=== PATIENT | female | born 1985 | race Caucasian/White ===

== ENCOUNTER 2018-05-04 16:15 | Emergency (ER) | payer OTHER, SELFPAY ==
[2018-05-04 16:22] VITALS: BP 133/89; PULSE 110; RESP 15; TEMP 37; O2SAT 100; BMI 25.3
[2018-05-04 19:00] VITALS: BP 117/70; PULSE 95; O2SAT 97
--- NOTE | 2018-05-04 19:26 | PC.NURSE ---
Pt had d/c at the end of February. For the last 48 hours pt has had cramping pain in pelvic area. Pt denies any bleeding. Pt appears to be in a lot of discomfort. Pt has attempted to use flexeril,zofran,toradol for relief but it is now not helping her.
--- NOTE | 2018-05-04 19:38 | ED_ITS ---
HPI - Female Genitourinary General Chief complaint: OB/Uterine Contractions Stated complaint: states miscarriage, cramping Time Seen by Provider: 05/04/18 17:33 Source: patient Mode of arrival: ambulatory Limitations: no limitations History of Present Illness HPI Narrative: This is a 32-year-old female comes to the emergency department with complaint of pelvic cramping and discomfort. Patient had a miscarriage in February along with a D&C. This was on April 12. She started having pelvic cramping in the last 4 days. She has tried ibuprofen and Tylenol followed by Flexeril and oral Toradol. Patient still continues to have quite a bit of pelvic cramping. She has not had any vaginal bleeding since her D and C. She has not had any fevers, she has been nauseated and had some vomiting. She has not been having any black or bloody stools she did have 1 or 2 episodes of diarrhea yesterday. She has not had any sexual activity since her D and C. She is not on any contraceptives or estrogen/progesterone. She did have severe periods in the past and when she had Mirena had a lot of discomfort as well. She has not had any other abdominal surgeries. She does have a history significant for L5 compression fracture as well as knee surgery. Along with wisdom teeth and tonsils. Related Data Previous Rx's Medication Instructions Recorded hydrocodone-acetaminophen [Dearborn] 1 tab PO QID PRN #7 tab 05/04/18 Allergies Allergy/AdvReac Type Severity Reaction Status Date / Time Penicillins Allergy Verified 05/04/18 16:22 Review of Systems Review of Systems All systems reviewed & are unremarkable except as noted in HPI and below Constitutional Denies fever(s) Gastrointestinal Gastrointestinal: Reports abdominal pain, Denies melena, Denies hematochezia, Denies constipation, Reports cramping, Reports diarrhea (x 1-2), Reports nausea and Reports vomiting Genitourinary Denies hematuria, Denies flank pain, Denies urinary incontinence and Denies urinary urgency Musculoskeletal Reports back pain (cramping) PFSH Medical History L5 vertebral fracture (Acute) Social History Smoking Status: Never smoker Exam Narrative Exam Narrative: GENERAL: Alert and oriented x three, well-nourished, well- appearing female in moderate distress. Patient does appear comfortable in the room. HEENT: Head normocephalic, atraumatic, EOMI, pupils reactive, face symmetric, moist mucous membranes NECK: Supple, full range of motion CARDIOVASCULAR: Regular rate and rhythm without murmurs, rubs or gallops. RESPIRATORY: Breath sounds equal bilaterally, no wheezes rales or rhonchi. ABDOMEN: Soft, mild suprapubic tenderness. Normoactive bowel sounds all 4 quadrants. No guarding or rebound, rigidity, no mass : No CVA tenderness EXTREMITIES: Normal range of motion NEUROLOGICAL: Cranial nerves II through XII grossly intact. Moving all extremities SKIN: Warm, dry, no petechiae, no rashes or lesions. Initial Vital Signs Initial Vital Signs: Vital Signs Temperature 98.6 F 05/04/18 16:22 Pulse Rate 110 H 05/04/18 16:22 Respiratory Rate 15 05/04/18 16:22 Blood Pressure 133/89 05/04/18 16:22 Pulse Oximetry 100 05/04/18 16:22 Course Orders Ordered: ED Orders 05/04/18 20:20 Complete Blood Count AUTO DIFF Stat Comprehensive Metabolic Panel Stat 05/04/18 21:51 CT abdomen pelvis w con Stat Discontinued Medications Hydrocodone Bitart/Acetaminophen (Vicodin Prepack) 1 bottle MISC SEEINSTR ONE Stop: 05/04/18 23:16 Last Admin: 05/04/18 23:39 Dose: 1 bottle Hydromorphone HCl (Dilaudid) 1 mg IV NOW ONE Stop: 05/04/18 21:39 Last Admin: 05/04/18 21:39 Dose: 1 mg Hydromorphone HCl (Dilaudid) 1 mg IV NOW ONE Stop: 05/04/18 23:16 Last Admin: 05/04/18 23:39 Dose: 1 mg Sodium Chloride (Normal Saline 0.9%) 1,000 mls @ 1,000 mls/hr IV BOLUS ONE Stop: 05/04/18 20:36 Last Infusion: 05/04/18 22:19 Dose: 0 mls/hr Admin: 05/04/18 20:50 Dose: 1,000 mls/hr Morphine Sulfate (Morphine) 4 mg IV NOW ONE Stop: 05/04/18 19:38 Last Admin: 05/04/18 20:50 Dose: 4 mg Ondansetron HCl (Zofran) 4 mg IV NOW ONE Stop: 05/04/18 19:38 Last Admin: 05/04/18 20:50 Dose: 4 mg Reevaluation(s) Reevaluation #1: Recheck after pain and anti-nausea medications. Pain improving with second dose of IV pain meds. US negative. labs no acute changes other than BUN up. ketones in urine. Discussed did not find any acute changes on her ultrasound she is quite tender we discussed watchful waiting versus imaging and she elected to get CT scan. Time: 21:42 Reevaluation #2: pain starting to return but better. REviewed imaging and labs. Patient's ultrasound and CT do not show any acute changes. Urine does not show any infection. Patient has slight white count of 12. She is much more comfortable at this time. Plan for follow-up for symptoms. Time: 23:19 Vital Signs - 8 hr 05/04/18 21:40 05/04/18 23:47 Pulse Rate 99 H 91 H Respiratory Rate 16 15 Blood Pressure 129/79 Blood Pressure [Right Arm] 118/67 Pulse Oximetry 100 97 MDM - Female Genitourinary Lab Data Attestation: I reviewed the patient's lab results. Result diagrams: 05/04/18 20:20 05/04/18 20:20 Lab Results 05/04/18 05/04/18 Range/Units 20:20 20:20 WBC 12.0 H (4.5-11.0) X10^3/uL RBC 4.78 (4.0-5.2) X10^6/uL Hgb 14.2 (12.0-16.0) g/dL Hct 42.4 (36-46) % MCV 88.8 (80-100) fL MCH 29.7 (26-34) PG MCHC 33.5 (30-36) % RDW 12.1 (11.6-14.8) % Plt Count 414 H (150-400) X10^3/uL Neut % (Auto) 57.9 (50-75) % Lymph % (Auto) 36.9 (25-40) % [place] % (Auto) 4.3 (3-14) % Eos % (Auto) 0.6 L (2-4) % Baso % (Auto) 0.3 (0-2) % Neut # (Auto) 7000 H (3939-1043) /uL Sodium 143 (137-145) mmol/L Potassium 3.4 (3.4-5.1) mmol/L Chloride 106 (98-107) mmol/L Carbon Dioxide 22 (22-32) mmol/L BUN 7 (7-17) mg/dL Creatinine 0.60 (0.52-1.04) mg/dL Estimated GFR > 60.0 (>60) mL/min BUN/Creatinine Ratio 11.7 (6-22) Glucose 92 (70-100) mg/dL Calcium 9.4 (8.4-10.2) mg/dL Total Bilirubin 0.5 (0.2-1.3) mg/dL AST 26 (14-36) IU/L ALT 31 (9-52) IU/L Alkaline Phosphatase 117 (38-126) U/L Total Protein 8.1 (6.3-8.2) g/dL Albumin 4.9 (3.5-5.0) g/dL Globulin 3.2 (1.7-4.1) g/dL Albumin/Globulin Ratio 1.5 (1.0-2.8) Point of Care Testing Test Results Negative Urine Dip Bedside Urine Glucose Negative Bedside Urine Bilirubin - Negative Bedside Urine Ketone ++ 40 Urine Specific [place] 1.015 Bedside Urine Occult Blood - Negative Bedside Urine pH 8.5 Bedside Urine Protein - Negative Bedside Urine Urobilinogen - Negative Bedside Urine Nitrite - Negative Bedside Urine Leukocytes - Negative Esterase Imaging Data Pelvic ultrasound: Radiologist's impression: [address] [address] Ultrasound Report Signed Patient: Calista Beverly LMR#: [id number] : 1985Acct:[id number] Age/Sex: te of Service: 05/04/18 Loc: ED Accession Number: [id number] Procedure: US pelvic complete Ordering Provider: Darlene Paez D.O. PROCEDURE: US PELVIC COMPLETE INDICATIONS: pelvic cramping, had d c March. TECHNIQUE: Real-time scanning was performed of the pelvic organs, with image documentation. Additional endovaginal scanning was necessary due to incomplete visualization of the adnexal and endometrial structures by transabdominal scanning. COMPARISON: None. FINDINGS: Transabdominal scanning: Limited scanning through the kidneys shows no hydronephrosis. No pathologic free abdominal or pelvic fluid. Endovaginal scanning: Uterus: Uterus is normal in size measuring 7.7 x 3.5 x 4.8 cm. The endometrium measures 7 mm in combined thickness. There is no blood flow within the endometrial complex. A punctate calcification is present within the endometrium. Ovaries: The right ovary measures 2.3 x 1.6 x 2.2 cm and has a normal echotexture. The left ovary measures 2.6 x 2.6 x 3.7 cm and has a normal echotexture. IMPRESSION: No findings to suggest retained products of conception. No intrauterine visualized. Dictated by: Marilou Orozco M.D. on 05/04/2018 at 21:14 Approved by: Marilou Orozco M.D. on 05/04/2018 at 21:17 CT abdomen and pelvis: Radiologist's impression: 18 mm follicle left ovary. Otherwise no CT evidence of acute intra-abdominal pathology on [facility] report. Discharge Plan Departure Patient Disposition: Home Clinical Impression: Abdominal pain Discharge Date/Time: 05/04/18 23:48 Interventions: ED Discharge Assessment Last Done: 05/04/18 23:47 Instructions: DI for Abdominal Pain-Adult Activity Restrictions/Additional Instructions: Follow-up in the next 2-3 days for recheck. Call tomorrow morning set up an appointment. Take medications as prescribed, these medications can make you sleepy do not drive, perform hazards activities or make any major decisions. Return to the emergency department for fevers greater than 100.4, persistent vomiting, black or bloody stools or rapidly increasing abdominal or back pain or if you're having any new or concerning symptoms. Prescriptions: New hydrocodone-acetaminophen [Dearborn] 5-325 mg tablet 1 tab PO QID PRN (Reason: pain) Qty: 7 RF: 0
[2018-05-04 20:33] VITALS: BP 115/72; PULSE 61; RESP 17; O2SAT 98
[2018-05-04 20:33] LABS: Add Manual Diff / Slide Review NO; Basophils Percent Auto 0.3 % (0-2); Eosinophils Percent Auto 0.6 % (2-4); Hematocrit 42.4 % (36-46); Hemoglobin 14.2 g/dL (12.0-16.0); Lymphocytes Percent Auto 36.9 % (25-40); Mean Corpuscular HGB Conc 33.5 % (30-36); Mean Corpuscular Hemoglobin 29.7 PG (26-34); Mean Corpuscular Volume 88.8 fL (80-100); Monocytes Percent Auto 4.3 % (3-14); Neutrophils Absolute Auto 7000 /uL (3000-5900); Neutrophils Percent Auto 57.9 % (50-75); Platelet Count 414 X10^3/uL (150-400); Red Blood Cell Count 4.78 X10^6/uL (4.0-5.2); Red Cell Distribution Width 12.1 % (11.6-14.8)
[2018-05-04 20:46] LABS: Alanine Aminotransferase 31 IU/L (9-52); Albumin 4.9 g/dL (3.5-5.0); Albumin Globulin Ratio 1.5 (1.0-2.8); Alkaline Phosphatase 117 U/L (38-126); Aspartate Aminotransferase 26 IU/L (14-36); BUN Creatinine Ratio 11.7 (6-22); Bilirubin Total 0.5 mg/dL (0.2-1.3); Blood Urea Nitrogen 7 mg/dL (7-17); Calcium 9.4 mg/dL (8.4-10.2); Carbon Dioxide 22 mmol/L (22-32); Chloride 106 mmol/L (98-107); Estimated Glomerular Filt Rate > 60.0 mL/min (>60); Globulin 3.2 g/dL (1.7-4.1); Glucose 92 mg/dL (70-100); HEMOLYSIS < 15 (0-50); Potassium 3.4 mmol/L (3.4-5.1); Sodium 143 mmol/L (137-145); Total Protein 8.1 g/dL (6.3-8.2)
[2018-05-04] MEDS: MORPHINE 4 MG/ML INJ IV (20:50)
[2018-05-04] MEDS: SODIUM CHLORIDE 0.9% 1,000 ML 1000 ML IV (20:50)
[2018-05-04] MEDS: ONDANSETRON 4 MG/2 ML INJ IV (20:50)
[2018-05-04] MEDS: HYDROMORPHONE 1 MG INJ IV ×2 (21:39→23:39)
[2018-05-04 21:40] VITALS: BP 118/67; PULSE 99; RESP 16; O2SAT 100
--- NOTE | 2018-05-04 21:51 | DI.CT.S_ITS ---
PROCEDURE: CT ABDOMEN PELVIS W CON INDICATIONS: abdominal pain, LLQ had d c march. cramping, no blood TECHNIQUE: After the administration of intravenous contrast, 5 mm thick sections acquired from the diaphragm to the symphysis. 5 mm coronal and sagittal reformats were acquired. For radiation dose reduction, the following was used: automated exposure control, adjustment of mA and/or kV according to patient size. COMPARISON: None. FINDINGS: Image quality: Excellent. ABDOMEN: Lung bases: Lung bases are clear. Heart size is normal. Solid organs: Liver is normal in size and enhancement. Gallbladder unremarkable. Biliary system is non dilated. Pancreas enhances normally. Spleen is normal in size and enhancement. No adrenal nodules. Kidneys demonstrate normal size and enhancement, without hydronephrosis. Peritoneum and bowel: Bowel loops demonstrate normal wall thickness and caliber. No free fluid or air. The appendix is within normal limits Rectum is grossly unremarkable Nodes and vessels: No retroperitoneal or mesenteric adenopathy by size criteria. Aorta and inferior vena cava are normal in size. Miscellaneous: No ventral hernias. PELVIS: Genitourinary: Bladder wall thickness is normal. Presumed 18 mm physiologic ovarian follicle seen in the left adnexal region Miscellaneous: No inguinal hernias or adenopathy. Bones: No suspicious bony lesions. No vertebral body compression fractures. IMPRESSION: No acute abnormality. Presumed 18 mm left ovarian physiologic follicle. Normal appendix. Dictated by: Yoni Steel M.D. on 05/05/2018 at 7:08 Approved by: Yoni Steel M.D. on 05/05/2018 at 7:11
[2018-05-04] MEDS: HYDROCODONE/ACET 5/325 PREPACK 1 BOTTLE MISC (23:39)
[2018-05-04 23:47] VITALS: BP 129/79; PULSE 91; RESP 15; O2SAT 97
== END 2018-05-04 23:48 | disposition home or self-care (01) ==
PROVIDERS: Emergency Provider Emergency Medicine
DX: R10.9 Unspecified abdominal pain (principal)
CPT/HCPCS: 36591; 74177; 76830; 76856; 80053; 81003; 81025; 85025; 96361; 96374; 96375; 96376; 99283; 99285; J1170; J2270; J2405; Q9967

== ENCOUNTER 2018-06-27 03:44 | Emergency (ER) | payer OTHER, SELFPAY ==
[2018-06-27 03:58] VITALS: BP 127/86; PULSE 102; RESP 20; TEMP 36.6; O2SAT 100; BMI 23.6
--- NOTE | 2018-06-27 03:58 | ED.HA ---
HPI - Headache General Chief Complaint: Headache Stated Complaint: Headache/neck pain Time Seen by Provider: 06/27/18 03:54 Source: patient Mode of arrival: ambulatory Limitations: no limitations History of Present Illness HPI Narrative: 32-year-old female, nonsmoker presents to the emergency department by herself with chief complaint of gradually worsening occipital headache and upper neck pain over the past few days. She has had episodes of nausea but no vomiting. She denies fever chills or abdominal pain. Patient has had no injury nor recent long distance travel. Additional symptoms include generalized fatigue, poor appetite and excessive sleepiness. She denies photophobia or exertional provocation. She has no focal neurologic symptoms such as numbness, tingling or weakness. Her headache is gradual in its onset. Patient reports minimal to little improvement with [id number] medications including Tylenol, Motrin and Excedrin. Furthermore she took Toradol with minimal relief. 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 MD Complaint: headache Onset (ago): day(s) Onset description: gradual Location: occipital Severity: moderate Quality: throbbing Relieving factors: nothing Exacerbating factors: none Associated symptoms: nausea and neck stiffness Treatments prior to arrival: acetaminophen, ibuprofen and migraine medication Related Data Previous Rx's Medication Instructions Recorded hydrocodone-acetaminophen [Christine] 1 tab PO QID PRN #7 tab 05/04/18 ondansetron 4 mg PO TID-QID PRN #10 tab 06/27/18 Allergies Allergy/AdvReac Type Severity Reaction Status Date / Time Penicillins Allergy Verified 05/04/18 16:22 [facility] Medical History L5 vertebral fracture (Acute) Social History Smoking Status: Never smoker Exam Initial Vital Signs Initial Vital Signs: Vital Signs Temperature 97.9 F 06/27/18 03:58 Pulse Rate 102 H 06/27/18 03:58 Respiratory Rate 20 06/27/18 03:58 Blood Pressure 127/86 06/27/18 03:58 Pulse Oximetry 100 06/27/18 03:58 Procedures Lumbar Puncture Time Out Performed: Yes Patient Position: upright Skin Prep: Povidone-Iodine 1% Local Anesthetic: lidocaine 1% Amount of anesthesia used (mL): 4 Spinal Needle Gauge: 22G Interspace Used: L4-L5 Fluid Initially Obtained: clear Complications: none Course Orders Ordered: ED Orders 06/27/18 04:20 Influenza A and B by PCR Rapid Stat Strep Grp A by PCR Rapid Stat 06/27/18 04:30 Basic Metabolic Panel Stat Complete Blood Count AUTO DIFF Stat 06/27/18 05:17 CSF culture Stat Cell Count w Diff CSF Stat Cell Count w Diff CSF Stat Glucose CSF Stat Meningitis Panel Stat Total Protein CSF Stat 06/27/18 05:55 CT head/brain wo con Stat 06/27/18 06:33 Urine Microscopic Stat Discontinued Medications Dihydroergotamine Mesylate (Dhe 45) 1 mg IV NOW ONE Stop: 06/27/18 05:56 Last Admin: 06/27/18 06:02 Dose: 1 mg Sodium Chloride (Normal Saline 0.9%) 1,000 mls @ 1,000 mls/hr IV BOLUS ONE Stop: 06/27/18 05:18 Last Admin: 06/27/18 04:47 Dose: 1,000 mls/hr Ceftriaxone Sodium/Dextrose (Rocephin) 1 gm in 50 mls @ 100 mls/hr IV NOW ONE Stop: 06/27/18 05:13 Last Infusion: 06/27/18 05:26 Dose: 0 mls/hr Admin: 06/27/18 04:49 Dose: 100 mls/hr Ketorolac Tromethamine (Toradol) 15 mg IV NOW ONE Stop: 06/27/18 04:20 Last Admin: 06/27/18 04:49 Dose: 15 mg Metoclopramide HCl (Reglan) 10 mg IV NOW ONE Stop: 06/27/18 04:20 Last Admin: 06/27/18 04:49 Dose: 10 mg Ondansetron HCl (Zofran) 4 mg IV NOW ONE Stop: 06/27/18 05:24 Last Admin: 06/27/18 05:26 Dose: 4 mg Reevaluation(s) Reevaluation #1: Patient has minimal relief after initial fluid bolus, Toradol and Reglan Reevaluation #2: Patient has tremendous improvement after DHE. Pain down to 3/10, feeling well enough to go home Vital Signs - 8 hr 06/27/18 03:58 06/27/18 05:34 Temperature 97.9 F Pulse Rate 102 H 83 Respiratory Rate 20 16 Blood Pressure 127/86 Blood Pressure [Right Arm] 112/67 Pulse Oximetry 100 95 MDM - Headache Differential Diagnosis Differential diagnosis: Likely migraine, tension headache, subarachnoid hemorrhage, headache, meningitis and sinusitis Medical Records Attestation: I reviewed the patient's medical records. Lab Data Attestation: I reviewed the patient's lab results. Result diagrams: 06/27/18 04:30 06/27/18 04:30 Lab Results 06/27/18 06/27/18 06/27/18 Range/Units 04:20 04:20 04:30 WBC 10.8 (4.5-11.0) X10^3/uL RBC 4.52 (4.0-5.2) X10^6/uL Hgb 13.9 (12.0-16.0) g/dL Hct 40.1 (36-46) % MCV 88.8 (80-100) fL MCH 30.7 (26-34) PG MCHC 34.6 (30-36) % RDW 12.5 (11.6-14.8) % Plt Count 417 H (150-400) X10^3/uL Neut % (Auto) 58.0 (50-75) % Lymph % (Auto) 33.9 (25-40) % [place] % (Auto) 6.5 (3-14) % Eos % (Auto) 1.0 L (2-4) % Baso % (Auto) 0.6 (0-2) % Neut # (Auto) 6300 H (3071-4353) /uL Sodium (137-145) mmol/L Potassium (3.4-5.1) mmol/L Chloride (98-107) mmol/L Carbon Dioxide (22-32) mmol/L BUN (7-17) mg/dL Creatinine (0.52-1.04) mg/dL Estimated GFR (>60) mL/min BUN/Creatinine Ratio (6-22) Glucose (70-100) mg/dL Calcium (8.4-10.2) mg/dL Urine RBC (0-5/HPF) Urine WBC (0-5/HPF) Ur Squamous Epith Cells Urine Bacteria (None) Hyaline Casts (None) Urine Mucus (Negative) Ur Culture Indicated? Micro UA Comment CSF Tube Number CSF Volume CSF Appearance (Clear) CSF Color (Colorless) CSF WBC (0-5) MONO/uL CSF RBC RBC /uL CSF Mononuclear WBCs CSF Polynuclear WBCs CSF Glucose (40-70) mg/dL CSF Total Protein (12-60) mg/dL CSF C.neoform/gat PCR (Not Detect) CSF CMV DNA (PCR) (Not Detect) CSF Enterovirus (PCR) (Not Detect) CSF E. coli (PCR) (Not Detect) CSF H. influenzae (PCR) (Not Detect) CSF HSV I (PCR) (Not Detect) CSF HSV II (PCR) (Not Detect) CSF HHV 6 (PCR) (Not Detect) CSF L.monocytogenes PCR (Not Detect) CSF N. meningitidis PCR (Not Detect) CSF Parechovirus (PCR) (Not Detect) CSF S. agalactiae (PCR) (Not Detect) CSF S. pneumoniae (PCR) (Not Detect) CSF VZV (PCR) Influenza A & B (PCR) Negative (Negative) Group A Strep (PCR) Negative 06/27/18 06/27/18 06/27/18 Range/Units 04:30 05:17 05:17 WBC (4.5-11.0) X10^3/uL RBC (4.0-5.2) X10^6/uL Hgb (12.0-16.0) g/dL Hct (36-46) % MCV (80-100) fL MCH (26-34) PG MCHC (30-36) % RDW (11.6-14.8) % Plt Count (150-400) X10^3/uL Neut % (Auto) (50-75) % Lymph % (Auto) (25-40) % [place] % (Auto) (3-14) % Eos % (Auto) (2-4) % Baso % (Auto) (0-2) % Neut # (Auto) (8759-3726) /uL Sodium 143 (137-145) mmol/L Potassium 3.5 (3.4-5.1) mmol/L Chloride 105 (98-107) mmol/L Carbon Dioxide 25 (22-32) mmol/L BUN 10 (7-17) mg/dL Creatinine 0.70 (0.52-1.04) mg/dL Estimated GFR > 60.0 (>60) mL/min BUN/Creatinine Ratio 14.3 (6-22) Glucose 100 (70-100) mg/dL Calcium 9.4 (8.4-10.2) mg/dL Urine RBC (0-5/HPF) Urine WBC (0-5/HPF) Ur Squamous Epith Cells Urine Bacteria (None) Hyaline Casts (None) Urine Mucus (Negative) Ur Culture Indicated? Micro UA Comment CSF Tube Number 2 CSF Volume 1.0 ml CSF Appearance Clear (Clear) CSF Color Colorless (Colorless) CSF WBC 2 (0-5) MONO/uL CSF RBC 0 RBC /uL CSF Mononuclear WBCs Not Reportable CSF Polynuclear WBCs Not Reportable CSF Glucose 51 (40-70) mg/dL CSF Total Protein 37 (12-60) mg/dL CSF C.neoform/gat PCR Not detected (Not Detect) CSF CMV DNA (PCR) Not detected (Not Detect) CSF Enterovirus (PCR) Not detected (Not Detect) CSF E. coli (PCR) Not detected (Not Detect) CSF H. influenzae (PCR) Not detected (Not Detect) CSF HSV I (PCR) Not detected (Not Detect) CSF HSV II (PCR) Not detected (Not Detect) CSF HHV 6 (PCR) Not detected (Not Detect) CSF L.monocytogenes PCR Not detected (Not Detect) CSF N. meningitidis PCR Not detected (Not Detect) CSF Parechovirus (PCR) Not detected (Not Detect) CSF S. agalactiae (PCR) Not detected (Not Detect) CSF S. pneumoniae (PCR) Not detected (Not Detect) CSF VZV (PCR) Not detected Influenza A & B (PCR) (Negative) Group A Strep (PCR) 06/27/18 06/27/18 Range/Units 05:17 06:33 WBC (4.5-11.0) X10^3/uL RBC (4.0-5.2) X10^6/uL Hgb (12.0-16.0) g/dL Hct (36-46) % MCV (80-100) fL MCH (26-34) PG MCHC (30-36) % RDW (11.6-14.8) % Plt Count (150-400) X10^3/uL Neut % (Auto) (50-75) % Lymph % (Auto) (25-40) % [place] % (Auto) (3-14) % Eos % (Auto) (2-4) % Baso % (Auto) (0-2) % Neut # (Auto) (2709-5794) /uL Sodium (137-145) mmol/L Potassium (3.4-5.1) mmol/L Chloride (98-107) mmol/L Carbon Dioxide (22-32) mmol/L BUN (7-17) mg/dL Creatinine (0.52-1.04) mg/dL Estimated GFR (>60) mL/min BUN/Creatinine Ratio (6-22) Glucose (70-100) mg/dL Calcium (8.4-10.2) mg/dL Urine RBC None seen (0-5/HPF) Urine WBC 0-1/hpf (0-5/HPF) Ur Squamous Epith Cells 10-30 /hpf H Urine Bacteria Many (>30) H (None) Hyaline Casts 1-5/lpf (None) Urine Mucus 2+ H (Negative) Ur Culture Indicated? Cult not indicated Micro UA Comment Not Reportable CSF Tube Number 4 CSF Volume 1.0 ml CSF Appearance Clear (Clear) CSF Color Colorless (Colorless) CSF WBC 0 (0-5) MONO/uL CSF RBC 0 RBC /uL CSF Mononuclear WBCs Not Reportable CSF Polynuclear WBCs Not Reportable CSF Glucose (40-70) mg/dL CSF Total Protein (12-60) mg/dL CSF C.neoform/gat PCR (Not Detect) CSF CMV DNA (PCR) (Not Detect) CSF Enterovirus (PCR) (Not Detect) CSF E. coli (PCR) (Not Detect) CSF H. influenzae (PCR) (Not Detect) CSF HSV I (PCR) (Not Detect) CSF HSV II (PCR) (Not Detect) CSF HHV 6 (PCR) (Not Detect) CSF L.monocytogenes PCR (Not Detect) CSF N. meningitidis PCR (Not Detect) CSF Parechovirus (PCR) (Not Detect) CSF S. agalactiae (PCR) (Not Detect) CSF S. pneumoniae (PCR) (Not Detect) CSF VZV (PCR) Influenza A & B (PCR) (Negative) Group A Strep (PCR) Point of Care Testing Test Results Positive Urine Dip Bedside Urine Glucose Negative Bedside Urine Bilirubin +++ 4 Bedside Urine Ketone ++ 40 Urine Specific [place] 1.030 Bedside Urine Occult Blood - Negative Bedside Urine pH 6.0 Bedside Urine Protein + 30 Bedside Urine Urobilinogen - Negative Bedside Urine Nitrite - Negative Bedside Urine Leukocytes - Negative Esterase MDM Narrative Medical decision making narrative: Multiple etiologies of headache considered including subarachnoid hemorrhage which is thought less likely given lack of support in findings on CT or lumbar puncture. Meningitis is considered but thought less likely given lumbar puncture findings. Flu considered but thought less likely given negative flu swab. Migraine equivalent considered unlikely given response to DHE. In the end this headache is likely multifactorial and may include factors such as viral infection, migraine, dehydration, lack of satisfactory caloric intake among others. Patient has been given length the return precautions and and has verbalized her understanding. Discharge Plan Departure Patient Disposition: Home Clinical Impression: Headache Instructions: DI for Migraine Activity Restrictions/Additional Instructions: *You have been diagnosed with [ atypical headache ] *What to do: *Take medications as directed: Tylenol or Motrin for pain *Follow up with your primary care provider in 2-3 days, call for an appointment. Let them know you were seen in the Emergency Department and that we ask that you be seen in follow up *Return to ER if you should have any new, worsening or concerning symptoms, such as [ worsening headache, persistent vomiting, fever over 101 F, any other bothersome symptoms] Prescriptions: New ondansetron 4 mg tablet,disintegrating 4 mg PO TID-QID PRN (Reason: nausea and vomiting) Qty: 10 RF: 0 No Action hydrocodone-acetaminophen [Christine] 5-325 mg tablet 1 tab PO QID PRN (Reason: pain) Qty: 7 RF: 0
--- NOTE | 2018-06-27 04:44 | ED_ITS ---
HPI - Headache General Chief Complaint: Headache Stated Complaint: Headache/neck pain Time Seen by Provider: 06/27/18 03:54 Source: patient Mode of arrival: ambulatory Limitations: no limitations History of Present Illness HPI Narrative: 32-year-old female, nonsmoker presents to the emergency department by herself with chief complaint of gradually worsening occipital headache and upper neck pain over the past few days. She has had episodes of nausea but no vomiting. She denies fever chills or abdominal pain. Patient has had no injury nor recent long distance travel. Additional symptoms include generalized fatigue, poor appetite and excessive sleepiness. She denies photophobia or exertional provocation. She has no focal neurologic symptoms such as numbness, tingling or weakness. Her headache is gradual in its onset. Patient reports minimal to little improvement with [id number] medications including Tylenol, Motrin and Excedrin. Furthermore she took Toradol with minimal relief. 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 MD Complaint: headache Onset (ago): day(s) Onset description: gradual Location: occipital Severity: moderate Quality: throbbing Relieving factors: nothing Exacerbating factors: none Associated symptoms: nausea and neck stiffness Treatments prior to arrival: acetaminophen, ibuprofen and migraine medication Related Data Previous Rx's Medication Instructions Recorded hydrocodone-acetaminophen [Hernando] 1 tab PO QID PRN #7 tab 05/04/18 ondansetron 4 mg PO TID-QID PRN #10 tab 06/27/18 Allergies Allergy/AdvReac Type Severity Reaction Status Date / Time Penicillins Allergy Verified 05/04/18 16:22 [facility] Medical History L5 vertebral fracture (Acute) Social History Smoking Status: Never smoker Exam Initial Vital Signs Initial Vital Signs: Vital Signs Temperature 97.9 F 06/27/18 03:58 Pulse Rate 102 H 06/27/18 03:58 Respiratory Rate 20 06/27/18 03:58 Blood Pressure 127/86 06/27/18 03:58 Pulse Oximetry 100 06/27/18 03:58 Procedures Lumbar Puncture Time Out Performed: Yes Patient Position: upright Skin Prep: Povidone-Iodine 1% Local Anesthetic: lidocaine 1% Amount of anesthesia used (mL): 4 Spinal Needle Gauge: 22G Interspace Used: L4-L5 Fluid Initially Obtained: clear Complications: none Course Orders Ordered: ED Orders 06/27/18 04:20 Influenza A and B by PCR Rapid Stat Strep Grp A by PCR Rapid Stat 06/27/18 04:30 Basic Metabolic Panel Stat Complete Blood Count AUTO DIFF Stat 06/27/18 05:17 CSF culture Stat Cell Count w Diff CSF Stat Cell Count w Diff CSF Stat Glucose CSF Stat Meningitis Panel Stat Total Protein CSF Stat 06/27/18 05:55 CT head/brain wo con Stat 06/27/18 06:33 Urine Microscopic Stat Discontinued Medications Dihydroergotamine Mesylate (Dhe 45) 1 mg IV NOW ONE Stop: 06/27/18 05:56 Last Admin: 06/27/18 06:02 Dose: 1 mg Sodium Chloride (Normal Saline 0.9%) 1,000 mls @ 1,000 mls/hr IV BOLUS ONE Stop: 06/27/18 05:18 Last Admin: 06/27/18 04:47 Dose: 1,000 mls/hr Ceftriaxone Sodium/Dextrose (Rocephin) 1 gm in 50 mls @ 100 mls/hr IV NOW ONE Stop: 06/27/18 05:13 Last Infusion: 06/27/18 05:26 Dose: 0 mls/hr Admin: 06/27/18 04:49 Dose: 100 mls/hr Ketorolac Tromethamine (Toradol) 15 mg IV NOW ONE Stop: 06/27/18 04:20 Last Admin: 06/27/18 04:49 Dose: 15 mg Metoclopramide HCl (Reglan) 10 mg IV NOW ONE Stop: 06/27/18 04:20 Last Admin: 06/27/18 04:49 Dose: 10 mg Ondansetron HCl (Zofran) 4 mg IV NOW ONE Stop: 06/27/18 05:24 Last Admin: 06/27/18 05:26 Dose: 4 mg Reevaluation(s) Reevaluation #1: Patient has minimal relief after initial fluid bolus, Toradol and Reglan Reevaluation #2: Patient has tremendous improvement after DHE. Pain down to 3/ 10, feeling well enough to go home Vital Signs - 8 hr 06/27/18 03:58 06/27/18 05:34 Temperature 97.9 F Pulse Rate 102 H 83 Respiratory Rate 20 16 Blood Pressure 127/86 Blood Pressure [Right Arm] 112/67 Pulse Oximetry 100 95 MDM - Headache Differential Diagnosis Differential diagnosis: Likely migraine, tension headache, subarachnoid hemorrhage, headache, meningitis and sinusitis Medical Records Attestation: I reviewed the patient's medical records. Lab Data Attestation: I reviewed the patient's lab results. Result diagrams: 06/27/18 04:30 06/27/18 04:30 Lab Results 06/27/18 06/27/18 06/27/18 Range/Units 04:20 04:20 04:30 WBC 10.8 (4.5-11.0) X10^3/uL RBC 4.52 (4.0-5.2) X10^6/uL Hgb 13.9 (12.0-16.0) g/dL Hct 40.1 (36-46) % MCV 88.8 (80-100) fL MCH 30.7 (26-34) PG MCHC 34.6 (30-36) % RDW 12.5 (11.6-14.8) % Plt Count 417 H (150-400) X10^3/uL Neut % (Auto) 58.0 (50-75) % Lymph % (Auto) 33.9 (25-40) % Grainger % (Auto) 6.5 (3-14) % Eos % (Auto) 1.0 L (2-4) % Baso % (Auto) 0.6 (0-2) % Neut # (Auto) 6300 H (6724-9096) /uL Sodium (137-145) mmol/L Potassium (3.4-5.1) mmol/L Chloride (98-107) mmol/L Carbon Dioxide (22-32) mmol/L BUN (7-17) mg/dL Creatinine (0.52-1.04) mg/dL Estimated GFR (>60) mL/min BUN/Creatinine Ratio (6-22) Glucose (70-100) mg/dL Calcium (8.4-10.2) mg/dL Urine RBC (0-5/HPF) Urine WBC (0-5/HPF) Ur Squamous Epith Cells Urine Bacteria (None) Hyaline Casts (None) Urine Mucus (Negative) Ur Culture Indicated? Micro UA Comment CSF Tube Number CSF Volume CSF Appearance (Clear) CSF Color (Colorless) CSF WBC (0-5) MONO/uL CSF RBC RBC /uL CSF Mononuclear WBCs CSF Polynuclear WBCs CSF Glucose (40-70) mg/dL CSF Total Protein (12-60) mg/dL CSF C.neoform/gat PCR (Not Detect) CSF CMV DNA (PCR) (Not Detect) CSF Enterovirus (PCR) (Not Detect) CSF E. coli (PCR) (Not Detect) CSF H. influenzae (PCR) (Not Detect) CSF HSV I (PCR) (Not Detect) CSF HSV II (PCR) (Not Detect) CSF HHV 6 (PCR) (Not Detect) CSF L.monocytogenes PCR (Not Detect) CSF N. meningitidis PCR (Not Detect) CSF Parechovirus (PCR) (Not Detect) CSF S. agalactiae (PCR) (Not Detect) CSF S. pneumoniae (PCR) (Not Detect) CSF VZV (PCR) Influenza A & B (PCR) Negative (Negative) Group A Strep (PCR) Negative 06/27/18 06/27/18 06/27/18 Range/Units 04:30 05:17 05:17 WBC (4.5-11.0) X10^3/uL RBC (4.0-5.2) X10^6/uL Hgb (12.0-16.0) g/dL Hct (36-46) % MCV (80-100) fL MCH (26-34) PG MCHC (30-36) % RDW (11.6-14.8) % Plt Count (150-400) X10^3/uL Neut % (Auto) (50-75) % Lymph % (Auto) (25-40) % Grainger % (Auto) (3-14) % Eos % (Auto) (2-4) % Baso % (Auto) (0-2) % Neut # (Auto) (8369-9052) /uL Sodium 143 (137-145) mmol/L Potassium 3.5 (3.4-5.1) mmol/L Chloride 105 (98-107) mmol/L Carbon Dioxide 25 (22-32) mmol/L BUN 10 (7-17) mg/dL Creatinine 0.70 (0.52-1.04) mg/dL Estimated GFR > 60.0 (>60) mL/min BUN/Creatinine Ratio 14.3 (6-22) Glucose 100 (70-100) mg/dL Calcium 9.4 (8.4-10.2) mg/dL Urine RBC (0-5/HPF) Urine WBC (0-5/HPF) Ur Squamous Epith Cells Urine Bacteria (None) Hyaline Casts (None) Urine Mucus (Negative) Ur Culture Indicated? Micro UA Comment CSF Tube Number 2 CSF Volume 1.0 ml CSF Appearance Clear (Clear) CSF Color Colorless (Colorless) CSF WBC 2 (0-5) MONO/uL CSF RBC 0 RBC /uL CSF Mononuclear WBCs Not Reportable CSF Polynuclear WBCs Not Reportable CSF Glucose 51 (40-70) mg/dL CSF Total Protein 37 (12-60) mg/dL CSF C.neoform/gat PCR Not detected (Not Detect) CSF CMV DNA (PCR) Not detected (Not Detect) CSF Enterovirus (PCR) Not detected (Not Detect) CSF E. coli (PCR) Not detected (Not Detect) CSF H. influenzae (PCR) Not detected (Not Detect) CSF HSV I (PCR) Not detected (Not Detect) CSF HSV II (PCR) Not detected (Not Detect) CSF HHV 6 (PCR) Not detected (Not Detect) CSF L.monocytogenes PCR Not detected (Not Detect) CSF N. meningitidis PCR Not detected (Not Detect) CSF Parechovirus (PCR) Not detected (Not Detect) CSF S. agalactiae (PCR) Not detected (Not Detect) CSF S. pneumoniae (PCR) Not detected (Not Detect) CSF VZV (PCR) Not detected Influenza A & B (PCR) (Negative) Group A Strep (PCR) 06/27/18 06/27/18 Range/Units 05:17 06:33 WBC (4.5-11.0) X10^3/uL RBC (4.0-5.2) X10^6/uL Hgb (12.0-16.0) g/dL Hct (36-46) % MCV (80-100) fL MCH (26-34) PG MCHC (30-36) % RDW (11.6-14.8) % Plt Count (150-400) X10^3/uL Neut % (Auto) (50-75) % Lymph % (Auto) (25-40) % Grainger % (Auto) (3-14) % Eos % (Auto) (2-4) % Baso % (Auto) (0-2) % Neut # (Auto) (3036-7474) /uL Sodium (137-145) mmol/L Potassium (3.4-5.1) mmol/L Chloride (98-107) mmol/L Carbon Dioxide (22-32) mmol/L BUN (7-17) mg/dL Creatinine (0.52-1.04) mg/dL Estimated GFR (>60) mL/min BUN/Creatinine Ratio (6-22) Glucose (70-100) mg/dL Calcium (8.4-10.2) mg/dL Urine RBC None seen (0-5/HPF) Urine WBC 0-1/hpf (0-5/HPF) Ur Squamous Epith Cells 10-30 /hpf H Urine Bacteria Many (>30) H (None) Hyaline Casts 1-5/lpf (None) Urine Mucus 2+ H (Negative) Ur Culture Indicated? Cult not indicated Micro UA Comment Not Reportable CSF Tube Number 4 CSF Volume 1.0 ml CSF Appearance Clear (Clear) CSF Color Colorless (Colorless) CSF WBC 0 (0-5) MONO/uL CSF RBC 0 RBC /uL CSF Mononuclear WBCs Not Reportable CSF Polynuclear WBCs Not Reportable CSF Glucose (40-70) mg/dL CSF Total Protein (12-60) mg/dL CSF C.neoform/gat PCR (Not Detect) CSF CMV DNA (PCR) (Not Detect) CSF Enterovirus (PCR) (Not Detect) CSF E. coli (PCR) (Not Detect) CSF H. influenzae (PCR) (Not Detect) CSF HSV I (PCR) (Not Detect) CSF HSV II (PCR) (Not Detect) CSF HHV 6 (PCR) (Not Detect) CSF L.monocytogenes PCR (Not Detect) CSF N. meningitidis PCR (Not Detect) CSF Parechovirus (PCR) (Not Detect) CSF S. agalactiae (PCR) (Not Detect) CSF S. pneumoniae (PCR) (Not Detect) CSF VZV (PCR) Influenza A & B (PCR) (Negative) Group A Strep (PCR) Point of Care Testing Test Results Positive Urine Dip Bedside Urine Glucose Negative Bedside Urine Bilirubin +++ 4 Bedside Urine Ketone ++ 40 Urine Specific Bradford 1.030 Bedside Urine Occult Blood - Negative Bedside Urine pH 6.0 Bedside Urine Protein + 30 Bedside Urine Urobilinogen - Negative Bedside Urine Nitrite - Negative Bedside Urine Leukocytes - Negative Esterase MDM Narrative Medical decision making narrative: Multiple etiologies of headache considered including subarachnoid hemorrhage which is thought less likely given lack of support in findings on CT or lumbar puncture. Meningitis is considered but thought less likely given lumbar puncture findings. Flu considered but thought less likely given negative flu swab. Migraine equivalent considered unlikely given response to DHE. In the end this headache is likely multifactorial and may include factors such as viral infection, migraine, dehydration, lack of satisfactory caloric intake among others. Patient has been given length the return precautions and and has verbalized her understanding. Discharge Plan Departure Patient Disposition: Home Clinical Impression: Headache Instructions: DI for Migraine Activity Restrictions/Additional Instructions: *You have been diagnosed with [ atypical headache ] *What to do: *Take medications as directed: Tylenol or Motrin for pain *Follow up with your primary care provider in 2-3 days, call for an appointment. Let them know you were seen in the Emergency Department and that we ask that you be seen in follow up *Return to ER if you should have any new, worsening or concerning symptoms , such as [ worsening headache, persistent vomiting, fever over 101 F, any other bothersome symptoms] Prescriptions: New ondansetron 4 mg tablet,disintegrating 4 mg PO TID-QID PRN (Reason: nausea and vomiting) Qty: 10 RF: 0 No Action hydrocodone-acetaminophen [Hernando] 5-325 mg tablet 1 tab PO QID PRN (Reason: pain) Qty: 7 RF: 0
[2018-06-27] MEDS: SODIUM CHLORIDE 0.9% 1,000 ML 1000 ML IV (04:47)
[2018-06-27] MEDS: CEFTRIAXONE 1 GM/50 ML FROZ.PIGGY IV (04:49)
[2018-06-27] MEDS: METOCLOPRAMIDE 10 MG/2 ML INJ IV (04:49)
[2018-06-27] MEDS: KETOROLAC 60 MG/2 ML VIAL 15 MG IV (04:49)
[2018-06-27 04:51] LABS: Influenza A and B by PCR Rapid Negative (Negative); Strep Grp A by PCR Rapid Negative
[2018-06-27 04:54] LABS: Add Manual Diff / Slide Review NO; Basophils Percent Auto 0.6 % (0-2); Hematocrit 40.1 % (36-46); Hemoglobin 13.9 g/dL (12.0-16.0); Lymphocytes Percent Auto 33.9 % (25-40); Mean Corpuscular HGB Conc 34.6 % (30-36); Mean Corpuscular Hemoglobin 30.7 PG (26-34); Mean Corpuscular Volume 88.8 fL (80-100); Monocytes Percent Auto 6.5 % (3-14); Neutrophils Absolute Auto 6300 /uL (3000-5900); Platelet Count 417 X10^3/uL (150-400); Red Blood Cell Count 4.52 X10^6/uL (4.0-5.2); Red Cell Distribution Width 12.5 % (11.6-14.8); White Blood Cell Count 10.8 X10^3/uL (4.5-11.0)
[2018-06-27 04:59] LABS: BUN Creatinine Ratio 14.3 (6-22); Blood Urea Nitrogen 10 mg/dL (7-17); Calcium 9.4 mg/dL (8.4-10.2); Carbon Dioxide 25 mmol/L (22-32); Chloride 105 mmol/L (98-107); Estimated Glomerular Filt Rate > 60.0 mL/min (>60); Glucose 100 mg/dL (70-100); HEMOLYSIS < 15 (0-50); Potassium 3.5 mmol/L (3.4-5.1); Sodium 143 mmol/L (137-145)
[2018-06-27] MEDS: ONDANSETRON 4 MG/2 ML INJ IV (05:26)
[2018-06-27 05:34] VITALS: BP 112/67; PULSE 83; RESP 16; O2SAT 95
[2018-06-27 05:35] LABS: Glucose CSF 51 mg/dL (40-70); Total Protein CSF 37 mg/dL (12-60)
[2018-06-27 05:47] LABS: CSF Tube Number 2
[2018-06-27 05:48] LABS: Appearance CSF Clear (Clear); CSF Tube Volume 1.0 mL; Color CSF Colorless (Colorless); Red Blood Cell CSF 0 RBC /uL; White Blood Cell CSF 2 MONO/uL (0-5)
[2018-06-27 05:49] LABS: Appearance CSF Clear (Clear); CSF Tube Number 4; CSF Tube Volume 1.0 mL; Color CSF Colorless (Colorless); Red Blood Cell CSF 0 RBC /uL; White Blood Cell CSF 0 MONO/uL (0-5)
--- NOTE | 2018-06-27 05:55 | DI.CT.S_ITS ---
PROCEDURE: CT HEAD/BRAIN WO CON INDICATIONS: severe THOMPSON, vomiting TECHNIQUE: Noncontrast 4.5 mm thick angled axial sections acquired from the foramen magnum to the vertex, with coronal and sagittal reformats. For radiation dose reduction, the following was used: automated exposure control, adjustment of mA and/or kV according to patient size. COMPARISON: None. FINDINGS: Image quality: Excellent. CSF spaces: Basal cisterns are patent. No extra-axial fluid collections. Ventricles are normal in size and shape. Brain: No midline shift. No intracranial masses or hemorrhage. Ye-white matter interface is normal. Skull and face: Calvarium and visualized facial bones are intact, without suspicious lesions. Sinuses: Visualized sinuses and mastoids are clear. IMPRESSION: No acute intracranial disease process. Dictated by: Vibha Schaefer MD, PhD on 06/27/2018 at 7:21 Approved by: Vibha Schaefer MD, PhD on 06/27/2018 at 7:23
[2018-06-27] MEDS: DIHYDROERGOTAMINE 1 MG/ML AMPUL IV (06:02)
--- NOTE | 2018-06-27 06:37 | PC.NURSE ---
Pt reports THOMPSON pain improved after DHE. Now rates pain 4/10. Still c/o nausea. Dr Cleaning notified. Urine sample collected and sent to lab for micro per protocol.
[2018-06-27 06:38] LABS: RBC Urine None Seen (0-5/HPF)
[2018-06-27 06:43] LABS: Squamous Epithelial Cell Urine 10-30 /HPF; WBC Urine 0-1/HPF (0-5/HPF)
[2018-06-27 06:44] LABS: Bacteria Urine Many (>30); Culture Indicated Urine Cult Not Indicated; Hyaline Casts Urine 1-5/LPF; Mucus Urine 2+ (Negative)
[2018-06-27 06:53] LABS: Cryptococcus neoformans/gattii Not Detected (Not Detect); Enterovirus Not Detected (Not Detect); Escherichia coli K1 Not Detected (Not Detect); Haemophilus influenzae Not Detected (Not Detect); Herpes simplex virus 1 Not Detected (Not Detect); Herpes simplex virus 2 Not Detected (Not Detect); Human herpesvirus 6 Not Detected (Not Detect); Listeria monocytogenes Not Detected (Not Detect); Neisseria meningitidis Not Detected (Not Detect); Streptococcus agalactiae Not Detected (Not Detect); Streptococcus pneumoniae Not Detected (Not Detect); Varicella Zoster Virus Not Detected
[2018-06-27 06:54] LABS: Human parechovirus Not Detected (Not Detect)
[2018-06-27 07:19] VITALS: BP 118/67; PULSE 78; RESP 18; TEMP 36.6; O2SAT 96
== END 2018-06-27 07:23 | disposition home or self-care (01) ==
PROVIDERS: Emergency Provider Emergency Medicine
DX: R51 Headache (principal)
CPT/HCPCS: 36591; 62270; 70450; 80048; 81003; 81015; 81025; 82945; 84157; 85025; 87070; 87205; 87400; 87651; 87798; 89051; 96361; 96365; 96375; 99283; 99285; J1110; J1885; J2405; J2765